=== PATIENT | male | born 1955 | race Caucasian/White ===

== ENCOUNTER 2020-02-10 07:14 | Day surgery (SDC) | payer MEDICARE, BC ==
[~2020-02-10 07:14] MED LIST: Bupivacaine 0.5% 50 ML MDV ONE; Lidocaine 1% with EPINEPHrine 1:100,000 50 ML MDV ONE
[2020-02-10] MEDS ORDERED: Dextrose 5%-Lactated Ringers 1,000 ML IV SCH (07:45)
[2020-02-10] MEDS ORDERED: Acetaminophen 500 MG Tab PO ONE (07:45)
[2020-02-10] MEDS ORDERED: ceFAZolin 2 GM in Premix Bag 1 BAG IV ONE (07:45)
[2020-02-10] MEDS ORDERED: fentaNYL 100 MCG/2 ML SDV ONE (09:06)
[2020-02-10] MEDS ORDERED: Midazolam 1 MG/ML 2 ML SDV ONE (09:06)
[2020-02-10] MEDS ORDERED: Propofol 200 MG/20 ML SDV ONE (09:06)
[2020-02-10] MEDS ORDERED: Bacitracin Oint 1 GM U/D Packet ONE (09:39)
--- NOTE | 2020-02-15 10:52 | OR ---
DATE OF PROCEDURE: 02/10/2020 SURGEON: Domingo Ambrose MD PREOPERATIVE DIAGNOSIS: Atypical nevus of parietal scalp. POSTOPERATIVE DIAGNOSIS: Atypical nevus of parietal scalp. OPERATIVE PROCEDURE: Excision of atypical nevus of parietal scalp with layered closure ([id number]). ANESTHESIA: Local plus IV sedation. INDICATIONS FOR PROCEDURE: This is a 64-year-old male presenting with atypical appearing nevus on his mid parietal scalp. 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 Plan is to proceed with excision of this. Potential risks including bleeding, infection, possibility of involved margins, possibility of needing additional treatment, if for instance an abnormality were in final pathology report, were all gone over, and the patient wishes to proceed. DETAILS OF PROCEDURE: The patient was taken to the operating room and placed in a supine position. The IV sedation was administered, after which the area around the mid parietal scalp was shaved, and that area was then prepped and draped. The area of concern was anesthetized with 1% lidocaine mixed with Marcaine. A transversely oriented elliptical incision including a small margin of normal appearing skin around the lesion was made, carried down through the skin and subcutaneous tissue, and the lesion removed intact. The lesion plus margin length was 2.2 cm and incision length 3.2 cm. Deeper soft tissue was approximated with some 4-0 Vicryl stitch and the skin with a 5-0 Prolene stitch. Bacitracin was applied, and the patient was taken to the recovery room in satisfactory condition. Domingo Ambrose MD /[id number]
== END 2020-02-10 11:20 | disposition home or self-care (01) ==
LOC: JP.SDS 07:14
PROVIDERS: ATTEND Surgery
DX: L57.0 Actinic keratosis (principal); Z91.018 Allergy to other foods
CPT/HCPCS: 11423; 12032; 88305; A9270; J0690; J2250; J2704; J3010; J3490; J7121

== ENCOUNTER 2023-04-07 15:24 | Emergency (ER) | payer BC, MEDICARE ==
[2023-04-07 16:36] LABS: BASOPHILS ABSOLUTE AUTO 0.01 K/uL (0.00-0.10); BASOPHILS PERCENT AUTO 0.2 % (0.1-1.3); EOSINOPHILS ABSOLUTE AUTO 0.06 K/uL (0.00-0.40); HEMATOCRIT 38.3 % (38.4-49.7); HEMOGLOBIN 13.7 g/dL (12.9-16.9); IMMATURE GRAN ABSOLUTE AUTO 0.03 K/uL (0.00-0.23); IMMATURE GRAN PERCENT AUTO 0.5 % (0.0-0.7); LYMPHOCYTES ABSOLUTE AUTO 0.89 K/uL (0.8-3.3); LYMPHOCYTES PERCENT AUTO 14.7 % (11.4-47.7); MEAN CORPUSCULAR HEMOGLOBIN 33.5 pg (31.6-35.5); MEAN CORPUSCULAR HGB CONC 35.8 g/dL (31.6-35.5); MEAN CORPUSCULAR VOLUME 93.6 fL (81.4-99.0); MONOCYTES ABSOLUTE AUTO 0.59 K/uL (0.20-0.90); MONOCYTES PERCENT AUTO 9.7 % (3.3-12.6); NEUTROPHILS ABSOLUTE AUTO 4.48 K/uL (1.0-7.6); NEUTROPHILS PERCENT AUTO 73.9 % (40.0-78.1); PLATELET COUNT,PLT 195 K/uL (130-375); RED BLOOD CELL COUNT 4.09 M/uL (4.14-5.76); WHITE BLOOD CELL COUNT,WBC 6.1 K/uL (3.2-11.0)
[2023-04-07 16:56] LABS: A/G RATIO 1.1 (1.2-2.2); ALANINE AMINOTRANSFERASE,ALT 68 U/L (12-78); ALBUMIN 3.6 g/dL (3.4-5.0); ALKALINE PHOSPHATASE 143 U/L (46-116); ASPARTATE AMNIOTRANSFERASE,AST 55 U/L (15-37); BILIRUBIN TOTAL 0.4 mg/dL (0.2-1.0); BLOOD UREA NITROGEN,BUN 11 mg/dL (7-18); CALCIUM 8.7 mg/dL (8.5-10.1); CARBON DIOXIDE,CO2 30 mmol/L (21-32); CHLORIDE,CL 95 mmol/L (100-108); CREATININE 1.1 mg/dL (0.8-1.3); EST CRCL DRUG DOSING (CG) 62.18 mL/min; ESTIMATED GFR 73 mL/min (>60); GLUCOSE RANDOM 122 mg/dL (74-106); POTASSIUM,K 4.1 mmol/L (3.6-5.2); SODIUM,NA 129 mmol/L (140-148)
[2023-04-07 16:58] LABS: ANION GAP 8.1 mmol/L (5.0-14.0)
[2023-04-07 17:15] LABS: APPEARANCE,URINE CLEAR (CLEAR); BILIRUBIN,URINE NEGATIVE (NEGATIVE); COLOR,URINE YELLOW (YELLOW); GLUCOSE,URINE NEGATIVE (NEGATIVE); KETONES,URINE NEGATIVE (NEGATIVE); LEUKOCYTE ESTERASE,URINE NEGATIVE (NEGATIVE); NITRITE,URINE NEGATIVE (NEGATIVE); OCCULT BLOOD,URINE NEGATIVE (NEGATIVE); PROTEIN,URINE NEGATIVE (NEGATIVE)
[2023-04-07 17:19] LABS: RBC,URINE 0-5 (0-5); WBC,URINE 0-5 (0-5)
[2023-04-07 17:20] LABS: AMORPHOUS SEDIMENT,URINE NOT SEEN; AMPHETAMINES SCREEN, URINE NEGATIVE (NEGATIVE); BACTERIA,URINE RARE; BARBITURATE SCREEN,URINE NEGATIVE (NEGATIVE); BENZODIAZEPINES SCREEN,URINE NEGATIVE (NEGATIVE); EPITHELIAL CELLS,URINE RARE; METHADONE SCREEN, URINE NEGATIVE (NEGATIVE); METHAMPHETAMINES SCREEN, URINE NEGATIVE (NEGATIVE); MUCUS,URINE NOT SEEN; OXYCODONE SCREEN,URINE NEGATIVE (NEGATIVE); PROPOXYPHENE SCREEN,URINE NEGATIVE (NEGATIVE); THC SCREEN,URINE 50 NG/ML PRESUMPTIVE POSITIVE (NEGATIVE)
[2023-04-07] MEDS ORDERED: BUSPIRONE 15 MG PO PRN (22:00)
[2023-04-07] MEDS ORDERED: diphenhydrAMINE 25 MG Cap PO PRN ×2 (23:36→23:42)
[2023-04-08] MEDS ORDERED: OLANZapine 5 MG Tab PO ONE (02:08)
[2023-04-08] MEDS ORDERED: LORazepam 1 MG Tab PO ONE (03:08)
[2023-04-08] MEDS ORDERED: busPIRone 5 MG Tab PO PRN (09:20)
[2023-04-08] MEDS ORDERED: QUEtiapine 25 MG Tab PO ONE (17:03)
[2023-04-08] MEDS ORDERED: Thiamine 100 MG Tab PO ONE (17:04)
[2023-04-08] MEDS ORDERED: Folic Acid 1 MG Tab PO ONE (17:04)
== END 2023-04-08 18:50 | disposition home or self-care (01) ==
LOC: JP.ED 15:24
DX: F30.9 Manic episode, unspecified (principal); R41.89 Other symptoms and signs involving cognitive functions and awareness; R44.0 Auditory hallucinations; M62.81 Muscle weakness (generalized); E87.1 Hypo-osmolality and hyponatremia; F10.931 Alcohol use, unspecified with withdrawal delirium; I10 Essential (primary) hypertension; Z88.8 Allergy status to other drugs, medicaments and biological substances; Z20.822 Contact with and (suspected) exposure to COVID-19; Z91.018 Allergy to other foods
CPT/HCPCS: 36415; 80053; 80305; 80307; 81001; 85025; 93005; 99285; A9270; U0002